=== PATIENT | male | born 1950 | race Caucasian/White ===

== ENCOUNTER → 2022-01-19 | Day surgery (SDC) | payer MEDICARE ==
[2022-01-17 11:03] LABS: BASOPHILS # (AUTO) 0.1 (0.0-0.1); BASOPHILS % 0.7 % (0.0-1.0); EOSINOPHILS # (AUTO) 0.1 (0.0-0.4); HEMATOCRIT 45.7 % (38.2-49.6); HEMOGLOBIN 15.3 g/dL (14.0-18.0); LYMPHOCYTES # (AUTO) 1.8 (1.0-3.2); LYMPHOCYTES % 20.8 % (18.0-39.1); MEAN CORPUSCULAR HEMOGLOBIN 32.4 pg (28-32); MEAN CORPUSCULAR HGB CONC 33.5 g/dL (31-35); MEAN CORPUSCULAR VOLUME 96.8 fL (81-99); MONOCYTES # (AUTO) 0.8 (0.2-0.8); MONOCYTES % 8.9 % (4.4-11.3); PLATELET COUNT 254 x10e3/uL (140-360); RED BLOOD COUNT 4.72 x10e6/uL (4.3-5.7)
[~2022-01-19] MED LIST: ACETAMINOPHEN 1000 MG/100 ML IV ONE; ACETAMINOPHEN-1 EAC4 PO; AMLODIPINE BESYL5 MG PO; ASPIRIN81 MG PO; ATROPINE SULFATE 1 MG/ML VIAL ONE; B12; BENAZEPRIL HCL10 MG PO; BUPIVACAINE 0.25% 30ML SDV ONE; CLINDAMYCIN 600MG / 50ML 50 ML IV ONE; CLONIDINE HCL0.1 MG PO; COQ-1030 MG; CRESTOR10 MG PO; DEXAMETHASONE SOD PHOS INJ 4 MG/ML SDV ONE; EPHEDRINE SULFATE INJ 50 MG/ML VIAL ONE; FENTANYL CITRATE/PF 100MCG/2 ML INJ ONE; FOLIC ACID0.4 MG PO; LIDOCAINE 1% W/EPINEPHRINE 20 ML VIAL ONE; LIDOCAINE HCL 2% LOCAL INJ 5 ML SDV VIAL INJ ONE; MIDAZOLAM HCL 2 MG/2 ML VIAL ONE; MULTI-VITAMIN1 EACH PO; MUPIROCIN 2% OINT 22 GM TUBE ONE; OMEPRAZOLE40 MG PO; ONDANSETRON HCL INJ 2MG/ML 2ML 2 MG/ML VIAL ONE; POVIDONE IODINE 0.05% 0.05 % ML PO ONE; PROPOFOL IV EMULSION 10 MG/ML 20 ML VIAL ONE; SEVOFLURANE INHAL SOLN 250 ML PEN BTL ONE; ULTRAM50 MG PO; VITAMIN D
[2022-01-19 09:55] VITALS: BP 129/66
== END | disposition home or self-care (01) ==
LOC: OR 05:25
PROVIDERS: ATTEND Plastic Surgery
DX: Z48.3 Aftercare following surgery for neoplasm (principal); Z85.828 Personal history of other malignant neoplasm of skin; S66.326A Laceration of extensor muscle, fascia and tendon of right little finger at wrist and hand level, initial encounter; G47.33 Obstructive sleep apnea (adult) (pediatric); K21.9 Gastro-esophageal reflux disease without esophagitis; I10 Essential (primary) hypertension; R00.1 Bradycardia, unspecified; W26.9XXA Contact with unspecified sharp object(s), initial encounter; Y92.530 Ambulatory surgery center as the place of occurrence of the external cause; Z88.0 Allergy status to penicillin; Z88.8 Allergy status to other drugs, medicaments and biological substances; Z01.810 Encounter for preprocedural cardiovascular examination; Z01.812 Encounter for preprocedural laboratory examination; Z20.822 Contact with and (suspected) exposure to COVID-19; Z79.82 Long term (current) use of aspirin; Z79.899 Other long term (current) drug therapy
CPT/HCPCS: 0223U; 15240; 15241 ×2; 25270; 25999; 36415; 85025; 93005; C1713; C9356; J0131; J0461; J1100; J2001; J2250; J2405; J2704; J3010; Q4118

== ENCOUNTER → 2022-03-15 | Outpatient (RCR) | payer MEDICARE ==
[~2022-03-15] MED LIST changes: -ACETAMINOPHEN 1000 MG/100 ML IV ONE; -ATROPINE SULFATE 1 MG/ML VIAL ONE; -BUPIVACAINE 0.25% 30ML SDV ONE; -CLINDAMYCIN 600MG / 50ML 50 ML IV ONE; -DEXAMETHASONE SOD PHOS INJ 4 MG/ML SDV ONE; -EPHEDRINE SULFATE INJ 50 MG/ML VIAL ONE; -FENTANYL CITRATE/PF 100MCG/2 ML INJ ONE; -LIDOCAINE 1% W/EPINEPHRINE 20 ML VIAL ONE; -LIDOCAINE HCL 2% LOCAL INJ 5 ML SDV VIAL INJ ONE; +LIDOCAINE VISC 2% SOLN 15 ML UDC ONE; -MIDAZOLAM HCL 2 MG/2 ML VIAL ONE; -MUPIROCIN 2% OINT 22 GM TUBE ONE; -ONDANSETRON HCL INJ 2MG/ML 2ML 2 MG/ML VIAL ONE; -POVIDONE IODINE 0.05% 0.05 % ML PO ONE; -PROPOFOL IV EMULSION 10 MG/ML 20 ML VIAL ONE; -SEVOFLURANE INHAL SOLN 250 ML PEN BTL ONE
== END ==
LOC: WCC 02-13 09:35
PROVIDERS: ATTEND Plastic Surgery
DX: T86.821 Skin graft (allograft) (autograft) failure (principal); I10 Essential (primary) hypertension; E78.01 Familial hypercholesterolemia; D48.5 Neoplasm of uncertain behavior of skin

== ENCOUNTER → 2022-03-23 | Day surgery (SDC) | payer MEDICARE ==
[2022-03-21 10:59] LABS: BASOPHILS % 0.6 % (0.0-1.0); EOSINOPHILS # (AUTO) 0.1 (0.0-0.4); EOSINOPHILS % 1.2 % (0.0-6.0); HEMATOCRIT 38.9 % (38.2-49.6); HEMOGLOBIN 12.8 g/dL (14.0-18.0); LYMPHOCYTES # (AUTO) 1.8 (1.0-3.2); LYMPHOCYTES % 25.9 % (18.0-39.1); MEAN CORPUSCULAR HEMOGLOBIN 31.8 pg (28-32); MEAN CORPUSCULAR HGB CONC 32.9 g/dL (31-35); MEAN CORPUSCULAR VOLUME 96.8 fL (81-99); MONOCYTES # (AUTO) 0.7 (0.2-0.8); MONOCYTES % 9.8 % (4.4-11.3); NEUTROPHILS # (AUTO) 4.3 (2.1-6.9); NEUTROPHILS % 61.9 % (38.7-80.0); PLATELET COUNT 260 x10e3/uL (140-360); RED BLOOD COUNT 4.02 x10e6/uL (4.3-5.7)
[~2022-03-23] MED LIST changes: +ACETAMINOPHEN/COD; +BUPIVACAINE HCL 0.25% 10ML MPF VIAL INJ ONE; +CLINDAMYCIN 600MG / 50ML 50 ML IV ONE; +DEXAMETHASONE SOD PHOS INJ 4 MG/ML SDV ONE; +EPHEDRINE SULFATE INJ 50 MG/ML VIAL ONE; +FENTANYL CITRATE/PF 100MCG/2 ML INJ ONE; +GLYCOPYRROLATE INJ 0.2 MG/ML VIAL ONE; +HYDROCODON-ACE1 EA11 PO; +LIDOCAINE HCL 2% LOCAL INJ 5 ML SDV VIAL INJ ONE; -LIDOCAINE VISC 2% SOLN 15 ML UDC ONE; +LYRICA100 MG PO; +MIDAZOLAM HCL 2 MG/2 ML VIAL ONE; +MINERAL OIL STERILE 10ML VIAL ONE; +MUPIROCIN 2% OINT 22 GM TUBE ONE; +ONDANSETRON HCL INJ 2MG/ML 2ML 2 MG/ML VIAL ONE; +POVIDONE IODINE 0.05% 0.05 % ML PO ONE; +PROPOFOL IV EMULSION 10 MG/ML 20 ML VIAL ONE; +SEVOFLURANE INHAL SOLN 250 ML PEN BTL ONE
[2022-03-23 08:21] VITALS: BP 146/73
== END | disposition home or self-care (01) ==
LOC: OR 06:37
PROVIDERS: ATTEND Plastic Surgery
DX: S61.401A Unspecified open wound of right hand, initial encounter (principal); Z85.828 Personal history of other malignant neoplasm of skin; G47.33 Obstructive sleep apnea (adult) (pediatric); I25.10 Atherosclerotic heart disease of native coronary artery without angina pectoris; I10 Essential (primary) hypertension; K21.9 Gastro-esophageal reflux disease without esophagitis; X58.XXXA Exposure to other specified factors, initial encounter; Z88.0 Allergy status to penicillin; Z88.8 Allergy status to other drugs, medicaments and biological substances; Z01.812 Encounter for preprocedural laboratory examination; Z01.818 Encounter for other preprocedural examination; Z20.822 Contact with and (suspected) exposure to COVID-19; Z79.82 Long term (current) use of aspirin; Z79.899 Other long term (current) drug therapy
CPT/HCPCS: 0223U; 15120; 36415; 71046; 85025; J1100; J2001; J2250; J2405; J2704; J3010; 97605; 99251

== ENCOUNTER → 2022-04-14 | Outpatient (RCR) | payer MEDICARE ==
[~2022-04-14] MED LIST changes: -BUPIVACAINE HCL 0.25% 10ML MPF VIAL INJ ONE; -CLINDAMYCIN 600MG / 50ML 50 ML IV ONE; -DEXAMETHASONE SOD PHOS INJ 4 MG/ML SDV ONE; -EPHEDRINE SULFATE INJ 50 MG/ML VIAL ONE; -FENTANYL CITRATE/PF 100MCG/2 ML INJ ONE; -GLYCOPYRROLATE INJ 0.2 MG/ML VIAL ONE; -LIDOCAINE HCL 2% LOCAL INJ 5 ML SDV VIAL INJ ONE; +LIDOCAINE VISC 2% SOLN 15 ML UDC ONE; -MIDAZOLAM HCL 2 MG/2 ML VIAL ONE; -MINERAL OIL STERILE 10ML VIAL ONE; -ONDANSETRON HCL INJ 2MG/ML 2ML 2 MG/ML VIAL ONE; -POVIDONE IODINE 0.05% 0.05 % ML PO ONE; -PROPOFOL IV EMULSION 10 MG/ML 20 ML VIAL ONE; -SEVOFLURANE INHAL SOLN 250 ML PEN BTL ONE
== END ==
LOC: WCC 03-17 12:38
PROVIDERS: ATTEND Internal Medicine Infectious Disease
DX: T86.821 Skin graft (allograft) (autograft) failure (principal); I10 Essential (primary) hypertension; E78.01 Familial hypercholesterolemia; D48.5 Neoplasm of uncertain behavior of skin

== ENCOUNTER → 2022-05-15 | Outpatient (RCR) | payer MEDICARE ==
[~2022-05-15] MED LIST changes: -MUPIROCIN 2% OINT 22 GM TUBE ONE
== END ==
LOC: WCC 04-17 14:47
PROVIDERS: ATTEND Plastic Surgery
DX: T86.828 Other complications of skin graft (allograft) (autograft) (principal); T81.89XA Other complications of procedures, not elsewhere classified, initial encounter; T86.821 Skin graft (allograft) (autograft) failure; D48.5 Neoplasm of uncertain behavior of skin; I10 Essential (primary) hypertension; E78.01 Familial hypercholesterolemia
CPT/HCPCS: 87071; 87075; 87205

== ENCOUNTER 2022-06-12 13:18 | Outpatient (RCR) | payer MEDICARE ==
[~2022-06-12 13:18] MED LIST changes: +MINERAL OIL/PETROLAT/GLYCERI 6OZ BTL ONE; +MUPIROCIN 2% OINT 22 GM TUBE ONE
== END 2022-06-14 ==
LOC: WCC 13:18
PROVIDERS: ATTEND Plastic Surgery
DX: T86.828 Other complications of skin graft (allograft) (autograft) (principal); D48.5 Neoplasm of uncertain behavior of skin; I10 Essential (primary) hypertension; E78.01 Familial hypercholesterolemia
CPT/HCPCS: 87071; 87075; 87205

== ENCOUNTER 2022-07-31 12:57 | Outpatient (RCR) | payer MEDICARE ==
[~2022-07-31 12:57] MED LIST changes: -LIDOCAINE VISC 2% SOLN 15 ML UDC ONE; -MINERAL OIL/PETROLAT/GLYCERI 6OZ BTL ONE; -MUPIROCIN 2% OINT 22 GM TUBE ONE
[2022-07-31] MEDS ORDERED: LIDOCAINE/PRILOCAINE 2.5-2.5% KIT ONE (13:11)
== END 2022-08-15 ==
LOC: WCC 12:57
PROVIDERS: ATTEND Plastic Surgery
DX: T86.828 Other complications of skin graft (allograft) (autograft) (principal); T86.821 Skin graft (allograft) (autograft) failure; D48.5 Neoplasm of uncertain behavior of skin; I10 Essential (primary) hypertension; E78.01 Familial hypercholesterolemia

== ENCOUNTER 2022-08-28 15:44 | Outpatient (RCR) | payer MEDICARE | END 2022-09-12 | LOC: WCC 15:44 | PROVIDERS: ATTEND Plastic Surgery | DX: T86.821 Skin graft (allograft) (autograft) failure (principal); T86.828 Other complications of skin graft (allograft) (autograft); D48.5 Neoplasm of uncertain behavior of skin; E78.01 Familial hypercholesterolemia; I10 Essential (primary) hypertension ==

== ENCOUNTER 2022-10-16 | Outpatient (RCR) | payer MEDICARE | END 2022-11-12 | LOC: WCC | PROVIDERS: ATTEND Plastic Surgery | DX: T86.828 Other complications of skin graft (allograft) (autograft) (principal) ==